=== PATIENT | male | born 1945 | race Caucasian/White ===

== ENCOUNTER 2017-10-03 20:50 | Inpatient (IN) | payer MEDICARE, OTHER ==
[2017-10-03] MEDS ORDERED: NS 0.9% 1000 ML*IV.FLUID IV ONE (22:23)
--- NOTE | 2017-10-03 22:36 | ED ---
Complex/Multi-Sys Presentation - HPI Summary HPI Summary: 72 year old M [place] [facility] [place] by complains of fever since last night, worse since this afternoon. The patient rates the pain 2/10 in severity. Symptoms aggravated by nothing. Symptoms alleviated by nothing. Patient reports shakes, chills, weakness, inability to move, fatigue, decreased appetite, and slight headache. Additionally complains of myalgia, notably in the groin. Patient denies chest pain, cough, nasal congestion, abdominal pain, n /v/d, and skin rash. Yesterday, patient washed and vacuumed his cars and moved heavy pieces of steel to someone's house. He denies recent tick exposure and recent travel. He has been taking hot showers to help with the chills. - History Of Current Complaint Chief Complaint: EDFever Time Seen by Provider: 10/03/17 22:22 Hx Obtained From: Patient Onset/Duration: Lasting Days - last night, Still Present, Worse Since - this afternoon Timing: Constant Severity Currently: Mild Aggravating Factor(s): nothing Alleviating Factor(s): nothing Associated Signs And Symptoms: Positive: Other - shakes, chills, weakness, inability to move, fatigue, decreased appetite, and slight headache. Additionally complains of myalgia, notably in the groin; NEGATIVE; chest pain, cough, nasal congestion, abdominal pain, n/v/d, and skin rash. - Allergies/Home Medications Allergies/Adverse Reactions: Allergies Allergy/AdvReac Type Severity Reaction Status Date / Time No Known Allergies Allergy Verified 01/10/15 19:05 PMH/Surg Hx/FS Hx/Imm Hx Previously Healthy: No Endocrine/Hematology History: Reports: Other Endocrine/Hematological Disorders - Dyslipidemia Cardiovascular History: Denies: Hx Hypertension - Cancer History Cancer Type, Location and Year: PROSTATE CA - Surgical History Surgery Procedure, Year, and Place: PROSTATECTOMY. Colonscopy - Immunization History Date of Tetanus Vaccine: Unk Date of Influenza Vaccine: 11/24 Infectious Disease History: No Infectious Disease History: Denies: Traveled Outside the [place] in Last 30 Days - Social History Alcohol Use: Occasionally Hx Substance Use: No Substance Use Type: Reports: None Hx Tobacco Use: No Smoking Status (MU): Never Smoked Tobacco Review of Systems Positive: Fever, Chills, Fatigue, Other - shakes ENT: Negative - nasal congestion Negative: Chest Pain Negative: Cough Positive: Other - decreased appetite. Negative: Abdominal Pain, Vomiting, Diarrhea, Nausea Positive: Myalgia - notably in groin Negative: Rash Neurological: Other - inability to move Positive: Headache, Weakness All Other Systems Reviewed And Are Negative: Yes Physical Exam - Summary Physical Exam Summary: Appearance: Well-appearing, Well-nourished, lying in bed comfortably. Patient has a fever. Skin: There is an area of intense erythema around the proximal medial thigh just below the inguinal crease. The erythema extends in a serpiginous pattern around anterior lateral thigh. Eyes: sclera anicteric, no conjunctival pallor ENT: mucous membranes moist, pharynx appears normal Neck: Supple, nontender Respiratory: Clear to auscultation, no signs of respiratory distress Cardiovascular: Normal S1, S2. No murmurs. Normal distal pulses in tibial and radial bilaterally. Abdomen: Soft, nontender, normal active bowel sounds present Musculoskeletal: Normal, Strength/ROM Intact Neurological: A&Ox3, awake and alert, mentation is normal, speech is fluent and appropriate Psychiatric: affect is normal, does not appear anxious or depressed Triage Information Reviewed: Yes Vital Signs On Initial Exam: Initial Vitals Temp Pulse Resp BP Pulse Ox 101.1 F 97 20 107/67 95 10/03/17 20:54 10/03/17 20:54 10/03/17 20:54 10/03/17 20:54 10/03/17 20:54 Vital Signs Reviewed: Yes Diagnostics - Vital Signs Vital Signs Temp Pulse Resp BP Pulse Ox 10/03/17 20:54 101.1 F 97 20 107/67 95 - Laboratory Result Diagrams: 10/04/17 06:37 10/04/17 06:37 Lab Statement: Any lab studies that have been ordered have been reviewed, and results considered in the medical decision making process. - Radiology CXR Radiology Interpretation Completed By: ED Physician - Normal CXR. Pending official report. - EKG 3998 Cardiac Rate: NL - 85 BPM EKG Rhythm: Sinus Rhythm EKG Interpretation: Normal EKG Complex Multi-Symp Course/Dx - Diagnoses Provider Diagnoses: Cellulitis of groin, right - Physician Notifications Discussed Care Of Patient With: Roberto Iglesias Time Discussed With Above Provider: 00:19 Instructed by Provider To: Other - Dr. Iglesias, hospitalist, agrees to admit patient Discharge - Sign-Out/Discharge Documenting (check all that apply): Patient Departure - admit - Discharge Plan Condition: Guarded Disposition: ADMITTED TO [facility] - Billing Disposition and Condition Condition: GUARDED Disposition: Admitted to [facility] - Attestation Statements Document Initiated by Lesteribe: Yes Documenting Scribe: Mary Gonzalez Provider For Whom Florian is Documenting (Include Credential): Vidal Aguayo MD Scribe Attestation: IMary, scribed for Vidal Aguayo MD on 10/05/17 at 0122. Scribe Documentation Reviewed: Yes Provider Attestation: The documentation as recorded by the Mary manzanares accurately reflects the service I personally performed and the decisions made by me, Vidal Aguayo MD
[2017-10-03 22:52] LABS: Hematocrit 41 % (42-52); Hemoglobin 13.8 g/dl (14.0-18.0); Mean Corpuscular HGB Conc 34 g/dl (31-36); Mean Corpuscular Hemoglobin 29 pg (27-31); Mean Corpuscular Volume 86 fL (80-94); Mean Platelet Volume 7.2 um3 (7.4-10.4); Platelet Count 136 10^3/ul (150-450); Red Blood Count 4.72 10^6/ul (4.00-5.40); Red Cell Distribution Width 14 % (10.5-15); White Blood Count 21.7 10^3/ul (3.5-10.8)
[2017-10-03 22:58] LABS: INR 1.15 (0.77-1.02)
[2017-10-03 23:09] LABS: EGFR Non-African American 60.9 (>60)
[2017-10-03 23:24] LABS: ABS Basophils 0.1 10^3/ul (0-0.2); ABS Eosinophils 0 10^3/ul (0-0.6); ABS Lymphocytes 0.6 10^3/ul (1.0-4.8); ABS Monocytes 0.6 10^3/ul (0-0.8); ABS Neutrophils 20.4 10^3/ul (1.5-7.7); ABS Nucleated RBC 0 10^3/ul; Eosinophil % 0 % (0-6); Lymphocyte % 2.5 % (25-47); Nucleated Red Blood Cells % 0.1
[2017-10-04] MEDS ORDERED: ceFAZolin 1 GM in Dextrose (*) 1 GM/50 ML BAG IVPB ONE (00:16)
[2017-10-04] MEDS ORDERED: Melatonin 3 MG TAB PO PRN (00:27)
[2017-10-04] MEDS ORDERED: Ondansetron ODT TAB* 4 MG PO PRN (00:28)
[2017-10-04] MEDS ORDERED: traMADol TAB* 50 MG PO PRN (00:29)
[2017-10-04] MEDS ORDERED: NS 0.9% 1000 ML* 1,000 ML IV SCH (00:30)
[2017-10-04] MEDS ORDERED: ceFAZolin 1 GM ADVAN(*) 1 GM in NS 0.9% 50 ML* 50 ML IVPB ONE (00:30)
[2017-10-04 00:36] LABS: Urine Appearance Clear; Urine Blood 1+ (Negative); Urine Color Yellow; Urine Ketones Trace (Negative); Urine Protein Negative (Negative); Urine Red Blood Cell Trace(0-2/hpf) (Absent); Urine Specific Gravity 1.023 (1.010-1.030); Urine Urobilinogen Negative (Negative); Urine White Blood Cell Trace(0-5/hpf) (Absent)
--- NOTE | 2017-10-04 00:37 | HP ---
H&P (Free Text) History and Physical: PCP: Aure Sanchez MD Date/Time: 10/04/2017 0025 CC: fever, malaise HPI: Mr Alonzo is a 72YO male HX prostate CA who reports onset Friday AM ~0130 of fever up to 104F associated with chills, myalgias, and malaise, but no sweats, cough, congestion, chest pain, N/V/D, or other significant issues. His appetite has been poor today. He has had some mild abdominal discomfort and some urinary frequency last PM, but no burning or urgency of urination or unusual back/flank pain. He has a mild red non-tender rash in the right groin. 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 Father passed at 94 from complications of Alzheimer's. ROS: as above, otherwise reviewed and all were negative vitals: Vital Signs Temp 38.4 C 10/03/17 20:54 Pulse 82 10/03/17 23:21 Resp 16 10/03/17 22:43 BP 121/67 10/03/17 23:21 Pulse Ox 95 10/03/17 23:40 Intake & Output 10/03/17 10/03/17 10/04/17 11:59 23:59 11:59 Weight 81.647 kg Constitutional: NAD, normally developed, overweight white male HEENM: atraumatic; sclera/conjunctiva: anicteric/clear; hearing: clinically intact; oropharynx: clear, mucosa moist Neck: soft tissue: no nuchal rigidity; thyroid: normal Pulmonary: clear to auscultation bilaterally, good aeration, no accessory muscle use CV: RR/RR, normal S1S2, no carotid bruit, no jugular venous distention, 2+ B DP/ PT, no edema Abdominal: soft, non-distended, trivial RUQ discomfort with deep palpation, no rebound/guarding/rigidity, normoactive bowel sounds, no hepatosplenomegaly or masses, no costovertebral angle tenderness Musculoskeletal: general: grossly intact, non-tender Integumental: R groin with ecchymotic, non-tender erythematous rash with surrounding folliculitis; no crepitus, warmth, or flocculence Psychiatric orientation: AA&O to PPS affect: calm mood: pleasant eye contact: good content: reliable responses: timely insight: good Testing: Lab Results 10/03/17 10/03/17 10/03/17 Range/Units 22:41 22:41 22:41 WBC 21.7 H (3.5-10.8) 10^3/ul RBC 4.72 (4.00-5.40) 10^6/ul Hgb 13.8 L (14.0-18.0) g/dl Hct 41 L (42-52) % MCV 86 (80-94) fL MCH 29 (27-31) pg MCHC 34 (31-36) g/dl RDW 14 (10.5-15) % Plt Count 136 L (150-450) 10^3/ul MPV 7.2 L (7.4-10.4) um3 Neut % (Auto) 94.2 H (38-83) % Lymph % (Auto) 2.5 L (25-47) % [place] % (Auto) 2.9 (0-7) % Eos % (Auto) 0 (0-6) % Baso % (Auto) 0.4 (0-2) % Absolute Neuts (auto) 20.4 H (1.5-7.7) 10^3/ul Absolute Lymphs (auto) 0.6 L (1.0-4.8) 10^3/ul Absolute Monos (auto) 0.6 (0-0.8) 10^3/ul Absolute Eos (auto) 0 (0-0.6) 10^3/ul Absolute Basos (auto) 0.1 (0-0.2) 10^3/ul Absolute Nucleated RBC 0 10^3/ul Nucleated RBC % 0.1 INR (Anticoag Therapy) 1.15 H (0.77-1.02) Sodium 137 (135-145) mmol/L Potassium 3.7 (3.5-5.0) mmol/L Chloride 102 (101-111) mmol/L Carbon Dioxide 26 (22-32) mmol/L Anion Gap 9 (2-11) mmol/L BUN 25 H (6-24) mg/dL Creatinine 1.18 H (0.67-1.17) mg/dL Est GFR ( Amer) 73.6 (>60) Est GFR (Non-Af Amer) 60.9 (>60) BUN/Creatinine Ratio 21.2 H (8-20) Glucose 126 H (70-100) mg/dL Lactic Acid (0.5-2.0) mmol/L Calcium 9.0 (8.6-10.3) mg/dL Total Bilirubin 1.30 H (0.2-1.0) mg/dL AST 16 (13-39) U/L ALT 13 (7-52) U/L Alkaline Phosphatase 35 (34-104) U/L Troponin I 0.02 (<0.04) ng/mL Total Protein 6.5 (6.4-8.9) g/dL Albumin 3.8 (3.2-5.2) g/dL Globulin 2.7 (2-4) g/dL Albumin/Globulin Ratio 1.4 (1-3) //18 Range/Units 22:41 WBC (3.5-10.8) 10^3/ul RBC (4.00-5.40) 10^6/ul Hgb (14.0-18.0) g/dl Hct (42-52) % MCV (80-94) fL MCH (27-31) pg MCHC (31-36) g/dl RDW (10.5-15) % Plt Count (150-450) 10^3/ul MPV (7.4-10.4) um3 Neut % (Auto) (38-83) % Lymph % (Auto) (25-47) % [place] % (Auto) (0-7) % Eos % (Auto) (0-6) % Baso % (Auto) (0-2) % Absolute Neuts (auto) (1.5-7.7) 10^3/ul Absolute Lymphs (auto) (1.0-4.8) 10^3/ul Absolute Monos (auto) (0-0.8) 10^3/ul Absolute Eos (auto) (0-0.6) 10^3/ul Absolute Basos (auto) (0-0.2) 10^3/ul Absolute Nucleated RBC 10^3/ul Nucleated RBC % INR (Anticoag Therapy) (0.77-1.02) Sodium (135-145) mmol/L Potassium (3.5-5.0) mmol/L Chloride (101-111) mmol/L Carbon Dioxide (22-32) mmol/L Anion Gap (2-11) mmol/L BUN (6-24) mg/dL Creatinine (0.67-1.17) mg/dL Est GFR ( Amer) (>60) Est GFR (Non-Af Amer) (>60) BUN/Creatinine Ratio (8-20) Glucose (70-100) mg/dL Lactic Acid 1.8 (0.5-2.0) mmol/L Calcium (8.6-10.3) mg/dL Total Bilirubin (0.2-1.0) mg/dL AST (13-39) U/L ALT (7-52) U/L Alkaline Phosphatase (34-104) U/L Troponin I (<0.04) ng/mL Total Protein (6.4-8.9) g/dL Albumin (3.2-5.2) g/dL Globulin (2-4) g/dL Albumin/Globulin Ratio (1-3) ECG, personally reviewed: NSR rate 85, mild ST depression V3-6; no comparison CXR, personally reviewed: no acute process Impression: 72M presenting with sepsis (leukocytosis & fever) 2nd suspected viral syndrome vs less likely R groin cellulitis DIAGNOSIS & PLAN Primary sepsis (leukocytosis & fever) 2nd suspected viral syndrome vs less likely R groin cellulitis : IV cefazolin : IVFs 30mg/kg bolus then 100cc/hr : blood CXs : obtain UA : supportive care Secondary HX prostate CA : s/p prostatectomy, continue outpatient surveillance Admission Rational: Inpatient for management of sepsis; inappropriate for the outpatient setting DVTp: heparin SQ Code Status: full HCP:
[2017-10-04] MEDS ORDERED: Ibuprofen TAB* 400 MG PO PRN (01:06)
[2017-10-04] MEDS: Acetaminophen TAB* 325 MG PO PRN (04:04)
[2017-10-04] MEDS: Omeprazole CAP* 20 MG PO SCH (05:43)
[2017-10-04] MEDS: Heparin VIAL(*) 5000 UNITS/ML VIAL (FIVE THOUSAND) SUBCUT SCH ×3 (05:43→21:10)
[2017-10-04 06:51] LABS: ABS Basophils 0 10^3/ul (0-0.2); ABS Eosinophils 0 10^3/ul (0-0.6); ABS Lymphocytes 0.7 10^3/ul (1.0-4.8); ABS Monocytes 0.3 10^3/ul (0-0.8); ABS Neutrophils 14.2 10^3/ul (1.5-7.7); ABS Nucleated RBC 0 10^3/ul; Eosinophil % 0 % (0-6); Hematocrit 36 % (42-52); Hemoglobin 12.3 g/dl (14.0-18.0); Lymphocyte % 4.3 % (25-47); Mean Corpuscular HGB Conc 34 g/dl (31-36); Mean Corpuscular Hemoglobin 30 pg (27-31); Mean Corpuscular Volume 86 fL (80-94); Mean Platelet Volume 7.6 um3 (7.4-10.4); Nucleated Red Blood Cells % 0; Platelet Count 116 10^3/ul (150-450); Red Blood Count 4.16 10^6/ul (4.00-5.40); Red Cell Distribution Width 14 % (10.5-15); White Blood Count 15.2 10^3/ul (3.5-10.8)
[2017-10-04 07:08] LABS: EGFR Non-African American 72.8 (>60)
[2017-10-04] MEDS ORDERED: Pneumococcal *Vac Polyvalent 0.5 ML VIAL IM ONE (09:00)
[2017-10-04] MEDS: Cetirizine* 10 MG TAB PO SCH (09:06)
[2017-10-04] MEDS: Ibuprofen TAB* 400 MG PO SCH ×3 (09:06→21:09)
[2017-10-04] MEDS: Docusate CAP* 100 MG PO SCH ×2 (09:06→21:10)
[2017-10-04] MEDS: ceFAZolin 1 GM VIAL(*) 1 GM in NS 0.9% 50 ML* 50 ML IVPB SCH ×3 (09:06→23:13)
--- NOTE | 2017-10-04 10:02 | RAD ---
INDICATION: Fever, shakes. COMPARISON: May 12, 2017 TECHNIQUE: Dual energy PA and routine lateral views of the chest were obtained. REPORT: Elevated lung volumes and mild prominence of the interstitial markings without change. No focal pulmonary lesion, compelling alveolar consolidation, pleural effusion, pneumothorax. Negative for cardiomegaly. Unremarkable central pulmonary vasculature. Unchanged mildly tortuous descending thoracic aorta. Unremarkable soft tissue contours and osseous structures. IMPRESSION: #. Stigmata of obstructive lung disease. No acute pulmonary or cardiac process evident. R0
--- NOTE | 2017-10-04 10:50 | PN ---
Subjective Date of Service: 10/04/17 Interval History: Mr. Alonzo reports feeling "better." He has been able to get some restful sleep. Last temp was at 0400, 101.6F. He reports generalized aching, but no specific pain. No pruritis. Offers no further complaints. at bedside during exam. Family History: Unchanged from Admission Social History: Unchanged from Admission Past Medical History: Unchanged from Admission Objective Active Medications: Acetaminophen (Tylenol Tab*) 650 mg PO Q6H PRN Atorvastatin Calcium (Lipitor*) 10 mg PO 1700 JANUSZ Cetirizine HCl (Zyrtec*) 10 mg PO DAILY JANUSZ; Protocol Docusate Sodium (Colace Cap*) 200 mg PO BID JANUSZ Heparin Sodium (Porcine) (Heparin Vial(*)) 5,000 units SUBCUT Q8HR JANUSZ Cefazolin Sodium 1 gm/ Sodium (Chloride) 50 mls @ 200 mls/hr IVPB Q8H JANUSZ Sodium Chloride (Ns 0.9% 1000 Ml*) 1,000 mls @ 100 mls/hr IV PER RATE [facility] Ibuprofen (Motrin Tab*) 400 mg PO TID JANUSZ Melatonin (Melatonin) 3 mg PO BEDTIME PRN; Protocol Omeprazole (Prilosec Cap*) 20 mg PO DAILY@0600 JANUSZ Ondansetron HCl (Zofran Odt Tab*) 4 mg PO Q6H PRN Tramadol HCl (Ultram*) 50 mg PO Q6H PRN Vital Signs - 8 hr 10/04/17 10/04/17 10/04/17 03:49 05:45 07:43 Temperature 101.6 F 97.9 F 98.6 F Pulse Rate 83 73 Respiratory 24 23 Rate Blood Pressure 108/57 97/62 (mmHg) O2 Sat by Pulse 95 96 Oximetry 10/04/17 08:00 Temperature Pulse Rate Respiratory 18 Rate Blood Pressure (mmHg) O2 Sat by Pulse Oximetry Oxygen Devices in Use Now: None Appearance: Middle aged male sitting in bed in NAD Eyes: No Scleral Icterus, PERRLA Ears/Nose/Mouth/Throat: NL Teeth, Lips, Gums, Mucous Membranes Moist Neck: NL Appearance and Movements; NL JVP, Trachea Midline Respiratory: Symmetrical Chest Expansion and Respiratory Effort, Clear to Auscultation Cardiovascular: NL Sounds; No Murmurs; No JVD, RRR, No Edema Abdominal: NL Sounds; No Tenderness; No Distention Lymphatic: No Inguinal Adenopathy Extremities: No Edema Skin: - - Blotchy erythema to right thigh extending into inguinal crease Neurological: Alert and Oriented x 3, NL Sensation Lines/Tubes/Other Access: Clean, Dry and Intact Peripheral IV Nutrition: Taking PO's Result Diagrams: 10/04/17 06:37 10/04/17 06:37 Assess/Plan/Problems-Billing Assessment: 72 yo male with PMH of prostate cancer s/p prostatectomy (cure) who presented to the ED meeting sepsis criteria and with an erythematous rash in the right groin who was admitted for sepsis likely 2/2 right groin cellulitis vs viral or other unknown source. - Patient Problems (1) Cellulitis of groin, right Current Visit: Yes Status: Acute Priority: High Code(s): L03.314 - CELLULITIS OF GROIN SNOMED Code(s): 87758991 Comment: - Likely cause of sepsis - WBC 21.7 on admission, now 15.2 - Continue cefazolin (2) Fever Current Visit: Yes Status: Acute Priority: High Code(s): R50.9 - FEVER, UNSPECIFIED SNOMED Code(s): 401600559 Comment: - Tmax 101.6 F, now euthermic - Blood culture results pending - UA negative (3) History of prostate cancer Current Visit: Yes Status: Chronic Priority: Medium Code(s): Z85.46 - PERSONAL HISTORY OF MALIGNANT NEOPLASM OF PROSTATE SNOMED Code(s): 379423162 Comment: - S/p prostatectomy (4) DVT prophylaxis Current Visit: Yes Status: Acute Priority: High Code(s): ADE0191 - SNOMED Code(s): 232834051 Comment: - Heparin SQ (5) Full code status Current Visit: Yes Status: Acute Code(s): Z78.9 - OTHER SPECIFIED HEALTH STATUS SNOMED Code(s): 100528622 Status and Disposition: Inpatient for IV antibiotics. D/c home when medically stable, likely tomorrow.
[2017-10-04] MEDS: Atorvastatin* 10 MG TAB PO SCH ×2 (17:16→17:18)
[2017-10-05] MEDS: Heparin VIAL(*) 5000 UNITS/ML VIAL (FIVE THOUSAND) SUBCUT SCH (05:57)
[2017-10-05] MEDS: Omeprazole CAP* 20 MG PO SCH (05:57)
[2017-10-05] MEDS: Acetaminophen TAB* 325 MG PO PRN (06:04)
[2017-10-05 06:31] LABS: ABS Basophils 0 10^3/ul (0-0.2); ABS Eosinophils 0 10^3/ul (0-0.6); ABS Monocytes 0.5 10^3/ul (0-0.8); ABS Neutrophils 6.3 10^3/ul (1.5-7.7); ABS Nucleated RBC 0 10^3/ul; Eosinophil % 0.4 % (0-6); Hematocrit 38 % (42-52); Hemoglobin 13.2 g/dl (14.0-18.0); Mean Corpuscular HGB Conc 35 g/dl (31-36); Mean Corpuscular Hemoglobin 30 pg (27-31); Mean Corpuscular Volume 85 fL (80-94); Mean Platelet Volume 8.1 um3 (7.4-10.4); Nucleated Red Blood Cells % 0.1; Platelet Count 100 10^3/ul (150-450); Red Blood Count 4.46 10^6/ul (4.00-5.40); Red Cell Distribution Width 14 % (10.5-15); White Blood Count 7.8 10^3/ul (3.5-10.8)
[2017-10-05 07:35] VITALS: BP 118/66
[2017-10-05] MEDS: Cetirizine* 10 MG TAB PO SCH (08:10)
[2017-10-05] MEDS: Ibuprofen TAB* 400 MG PO SCH (08:11)
[2017-10-05] MEDS: ceFAZolin 1 GM VIAL(*) 1 GM in NS 0.9% 50 ML* 50 ML IVPB SCH (08:11)
[2017-10-05] MEDS: Docusate CAP* 100 MG PO SCH (08:11)
--- NOTE | 2017-10-05 10:49 | PN ---
Subjective Date of Service: 10/05/17 Interval History: Mr. Alonzo reports feeling much better. He has had no further fever or rigors. He states that the redness to his right thigh is essentially unchanged since yesterday. He denies pain to the groin or testicles. He further denies chest pain, SOB, nausea, or abdominal pain. Family History: Unchanged from Admission Social History: Unchanged from Admission Past Medical History: Unchanged from Admission Objective Active Medications: Acetaminophen (Tylenol Tab*) 650 mg PO Q6H PRN Atorvastatin Calcium (Lipitor*) 10 mg PO 1700 JANUSZ Cetirizine HCl (Zyrtec*) 10 mg PO DAILY JANUSZ; Protocol Docusate Sodium (Colace Cap*) 200 mg PO BID JANUSZ Heparin Sodium (Porcine) (Heparin Vial(*)) 5,000 units SUBCUT Q8HR JANUSZ Cefazolin Sodium 1 gm/ Sodium (Chloride) 50 mls @ 200 mls/hr IVPB Q8H JANUSZ Ibuprofen (Motrin Tab*) 400 mg PO TID JANUSZ Melatonin (Melatonin) 3 mg PO BEDTIME PRN; Protocol Omeprazole (Prilosec Cap*) 20 mg PO DAILY@0600 JANUSZ Ondansetron HCl (Zofran Odt Tab*) 4 mg PO Q6H PRN Tramadol HCl (Ultram*) 50 mg PO Q6H PRN Vital Signs: Temp Pulse Resp BP Pulse Ox 98.2 F 70 20 118/66 96 10/05/17 07:21 10/05/17 07:21 10/05/17 08:00 10/05/17 07:21 10/05/17 07:21 Oxygen Devices in Use Now: None Appearance: Male lying in bed in NAD Eyes: No Scleral Icterus Ears/Nose/Mouth/Throat: Mucous Membranes Moist Neck: Trachea Midline Respiratory: Symmetrical Chest Expansion and Respiratory Effort, Clear to Auscultation Cardiovascular: NL Sounds; No Murmurs; No JVD, No Edema Abdominal: NL Sounds; No Tenderness; No Distention Lymphatic: No Cervical Adenopathy Extremities: No Edema Skin: - - scattered erythema to anterior right thigh, second smaller but darker red lesion to right groin, no drainage Result Diagrams: 10/05/17 05:40 10/04/17 06:37 Assess/Plan/Problems-Billing Assessment: Mr. Alonzo is a 72 yo male with PMH of prostate cancer s/p prostatectomy who presented to the ED meeting sepsis criteria and with an erythematous rash in the right groin who was admitted for sepsis likely 2/2 right groin cellulitis vs viral or other unknown source. - Patient Problems (1) Cellulitis of groin, right Comment: - Likely cause of sepsis - WBC 21.7 on admission, now 15.2 - Continue cefazolin - Unlikely to be lyme given appearance but given high prevalance, lyme serologies sent (2) History of prostate cancer Comment: - S/p prostatectomy (3) DVT prophylaxis Comment: - Heparin SQ (4) Full code status Comment: Status and Disposition: Inpatient. Discharge to home.
--- NOTE | 2017-10-05 21:42 | DS ---
CC: Dr. Sanchez * [facility] DISCHARGE SUMMARY: DATE OF ADMISSION: 10/04/17 DATE OF DISCHARGE: 10/05/17 PRIMARY CARE PROVIDER: Dr. Sanchez. ATTENDING PHYSICIAN: Dr. Grant Ferguson * (dictation provided by Danay Sky NP) PRIMARY DIAGNOSIS: Sepsis secondary to right thigh cellulitis. SECONDARY DIAGNOSIS: History of prostate cancer, status post prostatectomy. DISCHARGE MEDICATIONS: 1. Keflex 500 mg p.o. 4 times a day x7 days. 2. Ibuprofen 400 mg p.o. daily p.r.n. 3. Cetirizine 10 mg p.o. daily. 4. Atorvastatin 10 mg p.o. daily. HOSPITAL COURSE: Mr. Alonzo is a 72-year-old male with a past medical history of prostate cancer, status post prostatectomy who presented to the hospital on with a sudden onset of fever and chills. Please see the dictated H and P from Dr. Roberto Iglesias for complete details. In the emergency room, the patient had a temperature of 101.1. Labs showed a white blood cell count of 21.7, procalcitonin was 11.7, his BUN and creatinine were mildly elevated at 25 and 1.1 respectively. He had no evidence of a urinary tract infection via urinalysis. He had a chest x-ray that showed no acute process. He did; however , have associated with the new fever, a sudden onset of redness to his right groin and right thigh. Mr. Alonzo was admitted to the hospital, he was treated with cefazolin for suspected right thigh and groin cellulitis. By day 2, his white blood cell count has now returned to normal at 7.8, he has been afebrile since 10/04/17 at 3:49 a.m. He states that the redness is very mildly improved, but essentially unchanged since yesterday. He has no pain in the groin. The redness does not extend to the testicles or penis. Mr. Alonzo is medically stable for discharge to home to continue with Keflex 500 mg p.o. 4 times a day x7 days in treatment of his cellulitis. Diagnosis of Lyme disease was also entertained, but the rash was not at all typical for erythema migrans. The Lyme serologies were sent, however, given the frequency of that diagnosis at this time of the year. The results can be followed up with Dr. Sanchez. DISPOSITION: Home. DIET: Regular. ACTIVITY: As tolerated. FOLLOWUP PLANS: 1. Please follow up with Dr. Sanchez in the next week regarding his acute hospitalization. 2. The patient instructed and reminded strongly to return to the ER or see his primary care physician if he has any worsening erythema or new onset pain in the groin (he has not had any pain while here) or fever. TIME SPENT: Approximately 60 minutes were spent on the discharge of this patient, more than half the time spent with the patient at the bedside reviewing the events leading up to this hospitalization, performing the physical examination, and reviewing my plan of care. DANAY SKY NP [id number]/CPS #: [id number] DOMINGO
== END 2017-10-05 13:05 | disposition home or self-care (01) | DRG 872 ==
LOC: ED 20:50 → MED 10-04 00:26
PROVIDERS: ADMIT Hospitalist; ATTEND Student in an Organized Health Care Education/Training Program
DX: A41.1 Sepsis due to other specified staphylococcus (principal); L03.115 Cellulitis of right lower limb; Z85.46 Personal history of malignant neoplasm of prostate; Z79.1 Long term (current) use of non-steroidal anti-inflammatories (NSAID); Z79.899 Other long term (current) drug therapy; Z87.891 Personal history of nicotine dependence; Z83.3 Family history of diabetes mellitus; Z82.49 Family history of ischemic heart disease and other diseases of the circulatory system
CPT/HCPCS: 36415; 71046; 80048; 80053; 81003; 81015; 83605; 84145; 84484; 85025; 85610; 85730; 86618; 87040; 87077; 87086; 87150; 87205; 90732; 93005; 99284; A9270-GY; J0690; J1644